=== PATIENT | male | born 2000 | race African-American/Black ===

== ENCOUNTER 2022-09-14 16:21 | Day surgery (SDC) | payer OTHER ==
[2022-09-14 16:29] VITALS: BMI 23.5
[2022-09-14] MEDS ORDERED: IBUPROFEN 600 MG TABLET (FP) PO ONE ×2 (17:33→17:36)
[2022-09-14] MEDS ORDERED: ACETAMINOPHEN 500 MG TABLET (FP) PO ONE (17:33)
[2022-09-14] MEDS ORDERED: ACETAMINOPHEN 500 MG TABLET (FP) ONE (17:36)
[2022-09-14 18:52] LABS: URINE APPEARANCE CLEAR; URINE BILIRUBIN NEGATIVE (NEGATIVE); URINE COLOR YELLOW; URINE GLUCOSE (UA) NEGATIVE (NEGATIVE); URINE KETONE 1+ (NEGATIVE); URINE LEUK ESTERASE NEGATIVE (NEGATIVE); URINE NITRITE NEGATIVE (NEGATIVE); URINE PROTEIN TRACE (NEGATIVE)
[2022-09-14] MEDS ORDERED: morphine CARPU-JECT 2 MG/1 ML DISP.SYRIN IVPUSH ONE (19:42)
[2022-09-14 20:01] LABS: HEMATOCRIT 45.3 % (35.4-49); HEMOGLOBIN 14.5 GM/dL (11.7-16.9); MCH 22.2 pg (25.7-33.7); MCHC 32.1 g/dl (32.0-35.9); MEAN PLT VOLUME 7.6 fl (7.5-11.1); PLATELET COUNT 289 10^3/uL (134-434); RBC 6.56 M/mm3 (4.00-5.60); RDW 15.5 % (11.9-15.9); WHITE BLOOD COUNT 7.5 K/mm3 (4.0-10.0)
[2022-09-14 20:29] LABS: CALCIUM 11.1 mg/dL (8.5-10.1); INR 1.11 (0.83-1.09); PROTHROMBIN TIME (PATIENT) 12.8 SEC (9.7-13.0)
[2022-09-14 20:30] LABS: ALBUMIN 4.9 g/dl (3.4-5.0); BLOOD UREA NITROGEN 16.5 mg/dL (7-18)
[2022-09-14 20:33] LABS: CREATININE 1.1 mg/dL (0.55-1.3)
[2022-09-14 20:35] LABS: TOT PROT 8.3 g/dl (6.4-8.2)
[2022-09-14 21:05] LABS: ANISOCYTOSIS 1+; MACROCYTOSIS 0
[2022-09-14] MEDS ORDERED: FENTANYL CITRATE/PF 50 MCG/ML VIAL ONE ×2 (22:59→23:32)
[2022-09-14] MEDS ORDERED: PROPOFOL 20 ML ONE (23:00)
[2022-09-14] MEDS ORDERED: ONDANSETRON 4 MG/2 ML VIAL IVPUSH PRN (23:08)
[2022-09-14] MEDS ORDERED: BUPIVACAINE HCL/PF 0.5% (5MG/ML) 10 ML VIAL ONE (23:12)
[2022-09-14] MEDS ORDERED: DEXAMETHASONE SOD PHOSPHATE 4 MG/1 ML VIAL ONE (23:30)
[2022-09-14] MEDS ORDERED: ONDANSETRON 4 MG/2 ML VIAL ONE (23:30)
[2022-09-14] MEDS ORDERED: BUPIVACAINE HCL/PF 0.5% (5MG/ML) 10 ML VIAL IJ ONE (23:58)
[2022-09-15] MEDS ORDERED: BUPIVACAINE HCL/PF 0.5% (5MG/ML) 10 ML VIAL ONE (00:09)
[2022-09-15] MEDS ORDERED: oxyCODONE HCL 5 MG TABLET PO PRN (00:22)
[2022-09-15] MEDS ORDERED: ACETAMINOPHEN 500 MG TABLET (FP) PO PRN (00:23)
[2022-09-15] MEDS ORDERED: ONDANSETRON 4 MG/2 ML VIAL IVPUSH PRN (00:44)
[2022-09-15 02:17] VITALS: RESP 20
[2022-09-15 11:37] VITALS: BP 125/75; PULSE 67; TEMP 98.8
== END 2022-09-15 12:54 | disposition home or self-care (01) ==
LOC: JER 16:21 → JASUSAT 20:09 → J8W 09-15 01:33 → JASUSAT 09-15 12:54
PROVIDERS: ATTEND Urology
PROC: 3E033NZ Introduction of Analgesics, Hypnotics, Sedatives into Peripheral Vein, Percutaneous Approach (ICD-10-PCS; 2022-09-14)
PROC: 3E033GC Introduction of Other Therapeutic Substance into Peripheral Vein, Percutaneous Approach (ICD-10-PCS; 2022-09-14)
PROC: 3E033GC Introduction of Other Therapeutic Substance into Peripheral Vein, Percutaneous Approach (ICD-10-PCS; 2022-09-14)
PROC: 3E033NZ Introduction of Analgesics, Hypnotics, Sedatives into Peripheral Vein, Percutaneous Approach (ICD-10-PCS; principal; 2022-09-14 23:00)
DX: N44.00 Torsion of testis, unspecified (principal)
CPT/HCPCS: 36415; 76870-TC; 80053; 81003; 85025; 85610; 86850; 86900; 86901; 87086; 87491; 87591; 93005; 93010; 94760; 99285-25; C9803-CS; U0003; U0005

== ENCOUNTER 2024-05-08 10:10 | Emergency (ER) | payer OTHER ==
[2024-05-08 12:05] VITALS: BP 127/67; PULSE 68; RESP 18; TEMP 97.7; BMI 21.9
== END 2024-05-08 11:24 | disposition home or self-care (01) ==
LOC: JERFT 10:10
DX: K06.8 Other specified disorders of gingiva and edentulous alveolar ridge (principal); K08.89 Other specified disorders of teeth and supporting structures
CPT/HCPCS: 99283-25